=== PATIENT | male | born 1945 | race Caucasian/White ===

== ENCOUNTER → 2017-01-14 | Outpatient (CLI) | payer MEDICARE, OTHER ==
[~2017-01-14] VITALS: Ht 175.3 cm; Wt 95.7 kg
[~2017-01-14] MED LIST: ASPI1TAB PO; CRES10TA32 PO; FISH1000 PO; GLIP5TAB15 PO; INVO100T PO; JANU100T PO; METF500T PO; MULT1TAB10 PO; NS 1,000 ML IV SCH; PIOG45TA2 PO; PROPOFOL 200 MG/20 ML VIAL As Ordered ONE; RAMI10CA PO; SAVICAP PO
--- NOTE | 2017-01-14 08:05 | ROOR ---
Patient Name: Harry Walker Procedure Date: 01/14/2017 7:30 AM Date of : 1945 Age: 71 Room: [facility] Gender: Male Note Status: Finalized Procedure: Colonoscopy to Cecum + Cold Snare Polypectomy + Hemoclip Indications: Screening for colorectal malignant neoplasm, Last colonoscopy 10 years ago Providers: Pablito Long MD Referring MD: CHRISTOPHER HA JR, MD Requesting Provider: Medicines: Monitored Anesthesia Care Complications: No immediate complications. Procedure: Pre-Anesthesia Assessment: - The heart rate, respiratory rate, oxygen saturations, blood pressure, adequacy of pulmonary ventilation, and response to care were monitored throughout the procedure. The Colonoscope was introduced through the anus and advanced to the cecum, identified by appendiceal orifice and ileocecal valve. The colonoscopy was performed without difficulty. The patient tolerated the procedure well. The quality of the bowel preparation was excellent. Findings: The perianal and digital rectal examinations were normal. Non-bleeding internal hemorrhoids were found during retroflexion. The hemorrhoids were small and Grade I (internal hemorrhoids that do not prolapse). A polyp was found at 20 cm proximal to the anus. The polyp was semi-pedunculated. The polyp was removed with a cold snare. Resection and retrieval were complete. To prevent bleeding after the polypectomy, one hemostatic clip was successfully placed (MR conditional). There was no bleeding at the end of the procedure. A small polyp was found at 50 cm proximal to the anus. The polyp was sessile. The polyp was removed with a cold snare. Resection and retrieval were complete. A medium polyp was found in the mid ascending colon. The polyp was sessile. The polyp was removed with a cold snare. Resection and retrieval were complete. The exam was otherwise without abnormality on direct and retroflexion views. Impression: - Non-bleeding internal hemorrhoids. - One polyp at 20 cm proximal to the anus, removed with a cold snare. Resected and retrieved. Clip (MR conditional) was placed. - One small polyp at 50 cm proximal to the anus, removed with a cold snare. Resected and retrieved. - One medium polyp in the mid ascending colon, removed with a cold snare. Resected and retrieved. - The examination was otherwise normal on direct and retroflexion views. - The exam was otherwise normal to the cecum. Recommendation: - Patient has a contact number available for emergencies. The signs and symptoms of potential delayed complications were discussed with the patient. Return to normal activities tomorrow. Written discharge instructions were provided to the patient. - High fiber diet. - Discharge patient to home. - Continue present medications. - Await pathology results. - Telephone GI clinic for pathology results in 1 week. - Repeat colonoscopy in 5 years for surveillance based on pathology results. - Return to referring physician. - The findings and recommendations were discussed with the patient's family. Pablito Long MD Pablito Long MD 01/14/2017 8:04:56 AM This report has been signed electronically. Number of Addenda: 0 Note Initiated On: 01/14/2017 7:30 AM Estimated Blood Loss: Estimated blood loss: none.
[2017-01-14 08:25] VITALS: BP 145/72
== END | disposition home or self-care (01) ==
LOC: M OPP 06:44
PROVIDERS: ATTEND Internal Medicine Gastroenterology
DX: Z12.11 Encounter for screening for malignant neoplasm of colon (principal); D12.5 Benign neoplasm of sigmoid colon; D12.2 Benign neoplasm of ascending colon; K64.0 First degree hemorrhoids; I10 Essential (primary) hypertension; E78.5 Hyperlipidemia, unspecified; E11.9 Type 2 diabetes mellitus without complications; R12 Heartburn; R23.3 Spontaneous ecchymoses; M19.90 Unspecified osteoarthritis, unspecified site; Z79.82 Long term (current) use of aspirin; Z79.84 Long term (current) use of oral hypoglycemic drugs; Z79.899 Other long term (current) drug therapy

== ENCOUNTER → 2017-05-22 | Outpatient (REF) | payer MEDICARE, OTHER ==
[~2017-05-22] MED LIST changes: +GLIP1TAB49 PO; -GLIP5TAB15 PO; -METF500T PO; +METF500T13 PO; -NS 1,000 ML IV SCH; -PIOG45TA2 PO; +PIOG45TA4 PO; -PROPOFOL 200 MG/20 ML VIAL As Ordered ONE
[2017-05-26 00:11] LABS: Lyme Disease IgG/IgM Antibodie <0.91 ISR (0.00-0.90); Lyme Disease IgM Ab Quantitati <0.80 index (0.00-0.79)
== END ==
LOC: M LAB REF 21:33
PROVIDERS: ATTEND Physician Assistant
DX: Z11.9 Encounter for screening for infectious and parasitic diseases, unspecified (principal)

== ENCOUNTER → 2018-06-18 | Outpatient (CLI) | payer MEDICARE, OTHER | LOC: M RAD 09:47 | DX: Z12.2 Encounter for screening for malignant neoplasm of respiratory organs (principal); F17.210 Nicotine dependence, cigarettes, uncomplicated | CPT/HCPCS: G0297 ==

== ENCOUNTER → 2019-05-18 | Outpatient (CLI) | payer MEDICARE, OTHER ==
[~2019-05-18] MED LIST changes: -ASPI1TAB PO; +ASPI81TA26 PO; +CRES10TA PO; -CRES10TA32 PO; -GLIP1TAB49 PO; +GLIP5TAB20 PO; +PIOG1TAB55 PO; -PIOG45TA4 PO; -RAMI10CA PO; +RAMI1CAP26 PO
--- NOTE | 2019-05-18 19:51 | REP ---
CT study of the chest without contrast: History: Low-dose lung cancer screening study. Smoker. Comparison chest CT studies are from June 18, 2018 and 01/26/2008. The 2018 study showed a non solid 7 mm nodule in the right upper lobe. Findings: The previously noted non solid ground-glass opacity nodule in the right upper lobe has decreased in size and has a somewhat linear orientation now. This may be an area of scarring. There is, however, a ground-glass opacity similar in size, approximately 6 mm in the right upper lobe posteriorly which is visible in retrospect on 06/18/2018 and which is unchanged. There are two other small ground-glass opacities in the left upper lobe, also unchanged from June 18, 2018. These are all less than a centimeter in size. No other pulmonary nodule is appreciated. There is a stable 3 mm nodule in the right lower lobe posterolaterally which is believed to be apparent in retrospect on the 2007 study. Impression: Lung BIRADS category II benign appearing findings. Repeat screening study recommended in one year. There are three to four ground-glass opacities in the upper lobes bilaterally all well under a centimeter. Electronically Signed by Dwayne Ventura MD 05/18/2019 09:16 P
== END ==
LOC: M RAD 12:52
PROVIDERS: ATTEND Internal Medicine
DX: F17.210 Nicotine dependence, cigarettes, uncomplicated (principal)

== ENCOUNTER → 2021-03-07 | Outpatient (CLI) | payer MEDICARE, OTHER ==
--- NOTE | 2021-03-07 11:54 | REP ---
INDICATION: NICOTINE DEPENDENCE COMPARISON: 05/18/2019, 06/18/2018 TECHNIQUE: Axial noncontrast images from the thoracic inlet to the upper abdomen using low-dose lung screening technique (LDCT). FINDINGS: Lung schofield are well aerated and essentially symmetric/clear. Few very small non solid ground-glass areas of density remain unchanged bilaterally. No acute consolidation, significant nodule or mass lesion. No effusion. No pneumothorax. Tracheobronchial tree is patent. IMPRESSION: Lung-RADS category 2. Stable small non solid ground-glass densities. Management recommendations include annual low-dose CT surveillance. <Electronically signed by Reggie Sevilla > 03/07/21 [id number]
== END ==
LOC: M RAD 11:02
PROVIDERS: ATTEND Internal Medicine
DX: F17.210 Nicotine dependence, cigarettes, uncomplicated (principal); Z12.2 Encounter for screening for malignant neoplasm of respiratory organs

== ENCOUNTER → 2022-09-11 | Outpatient (CLI) | payer MEDICARE, OTHER | LOC: M EKG 10:03 | PROVIDERS: ATTEND Internal Medicine | DX: R55 Syncope and collapse (principal) ==

== ENCOUNTER → 2022-10-27 | Outpatient (CLI) | payer MEDICARE, OTHER | LOC: M RAD 14:30 | PROVIDERS: ATTEND Internal Medicine | DX: Z12.2 Encounter for screening for malignant neoplasm of respiratory organs (principal); F17.210 Nicotine dependence, cigarettes, uncomplicated ==

== ENCOUNTER → 2023-12-31 | Outpatient (CLI) | payer MEDICARE, OTHER | LOC: M RAD 13:30 | PROVIDERS: ATTEND Internal Medicine | DX: Z87.891 Personal history of nicotine dependence (principal) ==

== ENCOUNTER 2024-03-23 11:21 | Day surgery (SDC) | payer MEDICARE, OTHER ==
[~2024-03-23] VITALS: Ht 175.3 cm; Wt 89.1 kg
[~2024-03-23 11:21] MED LIST changes: +BRIN8DRO OU; +KP F1200 PO; +LANTINJ4 SC; +LIDOCAINE 2% 100MG/5ML SDV (FOR ANES.) As Ordered ONE; +OMEG10002 PO; +PRES10CA2 PO; +RAMI10CA64 PO; -RAMI1CAP26 PO; +ROSU10TA61 PO; +THERTAB52 PO; +XALA0.007 OU; +propofoL 200 MG/20 ML VIAL As Ordered ONE
[2024-03-23] MEDS: NS 1,000 ML IV ONE (11:38)
[2024-03-23 13:12] VITALS: TEMP 97
[2024-03-23 13:30] VITALS: BP 141/65; O2SAT 100
== END 2024-03-23 13:43 | disposition home or self-care (01) ==
LOC: M OPP 11:21
PROVIDERS: ATTEND Internal Medicine Gastroenterology
DX: Z12.11 Encounter for screening for malignant neoplasm of colon (principal); Z86.010 Personal history of colon polyps; D12.2 Benign neoplasm of ascending colon; K64.0 First degree hemorrhoids; K57.30 Diverticulosis of large intestine without perforation or abscess without bleeding; E11.9 Type 2 diabetes mellitus without complications; I10 Essential (primary) hypertension; F17.200 Nicotine dependence, unspecified, uncomplicated; Z79.82 Long term (current) use of aspirin; Z79.84 Long term (current) use of oral hypoglycemic drugs; Z79.899 Other long term (current) drug therapy

== ENCOUNTER → 2024-11-01 | Outpatient (CLI) | payer MEDICARE, OTHER ==
[~2024-11-01] MED LIST changes: -LIDOCAINE 2% 100MG/5ML SDV (FOR ANES.) As Ordered ONE; -propofoL 200 MG/20 ML VIAL As Ordered ONE
== END ==
LOC: M RAD 10:15
PROVIDERS: ATTEND Internal Medicine
DX: R91.8 Other nonspecific abnormal finding of lung field (principal)

== ENCOUNTER → 2025-07-22 | Outpatient (CLI) | payer MEDICARE, OTHER ==
[~2025-07-22] MED LIST changes: +GLIP-318 PO; -GLIP5TAB20 PO
== END ==
LOC: M RAD 12:34
DX: R26.81 Unsteadiness on feet (principal); R42 Dizziness and giddiness

== ENCOUNTER → 2025-08-24 | Outpatient (CLI) | payer MEDICARE, OTHER ==
[~2025-08-24] MED LIST changes: -ROSU10TA61 PO; +ROSU10TA90 PO
== END ==
LOC: M PLAIMG 13:30
DX: R42 Dizziness and giddiness (principal); Z79.899 Other long term (current) drug therapy